=== PATIENT | male | born 1975 ===

== ENCOUNTER 2017-08-06 03:32 | Inpatient (IN) | payer OTHER ==
[2017-08-06] MEDS ORDERED: Sodium Chloride 0.9% 1,000 ML IV ONE (03:47)
--- NOTE | 2017-08-06 03:48 | C.PDOC ---
History Of Present Illness 42 year old male presents to the ED c/o dizziness. Patient reports he was at work when he got dizzy went to sit on a chair and had a witnessed syncopal episode. Patient states he feel weak. Patient denies fever, chills, nausea, vomit, diarrhea, CP, SOB, palpitations, visual changes, tinnitus. Time Seen by Provider: 08/06/17 03:47 Chief Complaint (Nursing): Dizziness/Lightheaded History Per: Patient History/Exam Limitations: no limitations Onset/Duration Of Symptoms: Days Current Symptoms Are (Timing): Still Present Number Of Syncopal Episodes: 1 Activity At Onset Of Symptoms: Sitting Associated Symptoms Preceding Syncopal Episode: No Predromal Symptoms (Sudden Onset) Seizure Or Post-ictal Symptoms: None Possible Causative Factor(s): Other Fall Associated With With Symptoms: No Severity: Moderate Pain Scale Rating Of: 4 Recent travel outside of the [place]: No Additional History Per: Patient Past Medical History Reviewed: Historical Data, Nursing Documentation, Vital Signs Vital Signs: Last Vital Signs Temp 98.8 F 08/06/17 03:39 Pulse 75 08/06/17 05:36 Resp 17 08/06/17 05:36 BP 139/81 08/06/17 05:36 Pulse Ox 97 08/06/17 05:36 - Medical History PMH: No Chronic Diseases Surgical History: No Surg Hx Family History: States: Unknown Family Hx - Social History Hx Alcohol Use: Yes Hx Substance Use: No Review Of Systems Constitutional: Positive for: Weakness. Negative for: Fever, Chills Eyes: Negative for: Vision Change Cardiovascular: Negative for: Chest Pain, Palpitations Respiratory: Negative for: Cough, Shortness of Breath Gastrointestinal: Negative for: Nausea, Vomiting, Diarrhea Skin: Negative for: Rash Neurological: Positive for: Dizziness. Negative for: Headache Psych: Negative for: Anxiety Physical Exam - Physical Exam Appears: Non-toxic Skin: Warm, Dry Head: Normacephalic Eye(s): bilateral: Normal Inspection, PERRL, EOMI Oral Mucosa: Moist Neck: Supple Chest: Symmetrical Cardiovascular: Rhythm Regular Respiratory: No Rales, No Rhonchi, No Wheezing Gastrointestinal/Abdominal: Soft, No Tenderness, No Guarding, No Rebound Back: Normal Inspection Extremity: Normal ROM Extremity: Bilateral: Atraumatic, Normal Color And Temperature Pulses: Left Dorsalis Pedis: Normal, Right Dorsalis Pedis: Normal Neurological/Psych: Oriented x3, Normal Speech, Normal Cognition, Normal Motor, Normal Sensation, Other (no focal deficits) Gait: Unable To Assess ED Course And Treatment - Laboratory Results Result Diagrams: 08/06/17 03:59 08/06/17 03:59 ECG: Interpreted By Me, Viewed By Me ECG Rhythm: Sinus Rhythm (81), Nonspecific Changes O2 Sat by Pulse Oximetry: 99 (ON RA) Pulse Ox Interpretation: Normal - Radiology CXR: Interpreted by Me, Viewed By Me CXR Interpretation: No: Infiltrates, Fracture, Cardiomegaly, Pnemothorax Progress Note: Plan: - CT head. - EKG. - Labs. - IV fluids. - UA Disposition Discussed With Dr.: Flex Solares Comment[facility] took [facility] care at 5:49 AM Doctor Will See Patient In The: ED Counseled Patient/Family Regarding: Studies Performed, Diagnosis - Disposition Disposition: HOSPITALIZED Disposition Time: 05:49 Condition: FAIR Forms: [facility] (Yakut) - POA Present On Arrival: Poor Glycemic Control - Clinical Impression Clinical Impression: Dizziness, Syncope - Scribe Statement The provider has reviewed the documentation as recorded by the Scribe Allen Martinez All medical record entries made by the Scribe were at my direction and personally dictated by me. I have reviewed the chart and agree that the record accurately reflects my personal performance of the history, physical exam, medical decision making, and the department course for this patient. I have also personally directed, reviewed, and agree with the discharge instructions and disposition. Decision To Admit - Pt Status Changed To: Hospital Disposition Of: Inpatient - Admit Certification Admit to Inpatient:: After my assessment, the patient will require hospitalization for at least two midnights. This is because of the severity of symptoms shown, intensity of services needed, and/or the medical risk in this patient being treated as an outpatient. - InPatient: Physician Admission Certification: I certify that this patient requires 2 or more midnights of care for the following reason:: After my assessment, the patient will require hospitalization for at least two midnights. This is because of the severity of symptoms shown, intensity of services needed, and/or the medical risk in this patient being treated as an outpatient. - . Bed Request Type: Telemetry Admitting Physician: Flex Solares Patient Diagnosis: Dizziness, Syncope
[2017-08-06 04:03] LABS: BASO % 0.2 % (0.0-2.0); EOS # 0.1 K/uL (0.0-0.7); HEMOGLOBIN 14.8 g/dL (12.0-18.0); LYMPH # 2.3 K/uL (1.0-4.3); LYMPH % 31.3 % (20.0-40.0); MEAN CELL VOLUME 90.2 fL (80.0-94.0); MEAN CORPUSCULAR HEMOGLOBIN 31.6 pg (27.0-31.0); MEAN PLATELET VOLUME 9.5 fL (7.2-11.7); MONO # 0.4 K/uL (0.0-0.8); MONO % 5.5 % (0.0-10.0); NEUT # 4.5 K/uL (1.8-7.0); RBC 4.67 Mil/uL (4.40-5.90); RED CELL DISTRIBUTION WIDTH 13.8 % (11.5-14.5); WHITE BLOOD COUNT 7.3 K/uL (4.8-10.8)
[2017-08-06] MEDS ORDERED: Sodium Chloride 0.9% 1,000 ML ONE (04:03)
[2017-08-06 04:04] LABS: URINE BILIRUBIN NEGATIVE (NEGATIVE); URINE BLOOD 1+ (NEGATIVE); URINE CLARITY Clear (Clear); URINE COLOR Yellow (YELLOW); URINE GLUCOSE (UA) NORMAL (Normal); URINE LEUKOCYTE ESTERASE NEG Leu/uL (Negative); URINE PROTEIN NEGATIVE (NEGATIVE); URINE UROBILINOGEN NORMAL mg/dL (0.2-1.0)
[2017-08-06 04:08] LABS: INR 1.1; PROTHROMBIN TIME 12.1 SECONDS (9.7-12.2)
[2017-08-06 04:18] LABS: ALB/GLOB RATIO 1.5 (1.0-2.1); ALBUMIN 4.3 g/dL (3.5-5.0); ALT/SGPT 24 U/L (21-72); AST/SGOT 31 U/L (17-59); BLOOD UREA NITROGEN 13 mg/dL (9-20); CALCIUM 8.8 mg/dl (8.6-10.4); GFR AFRICAN-AMERICAN > 60; GFR NON-AFRICAN AMERICAN > 60
--- NOTE | 2017-08-06 05:02 | CT ---
EXAM: CT Head Without Intravenous Contrast CLINICAL HISTORY: 42 years old, male; Pain; Headache; Additional info: R/O bleed TECHNIQUE: Axial computed tomography images of the head/brain without intravenous contrast. All CT scans at this facility use one or more dose reduction techniques, viz.: automated exposure control; ma/kV adjustment per patient size (including targeted exams where dose is matched to indication; i.e. head); or iterative reconstruction technique. COMPARISON: No relevant prior studies available. FINDINGS: Brain: No intracranial hemorrhage. No mass. No definite edema. Ventricles: No hydrocephalus. Bones/joints: No acute fracture. Soft tissues: Unremarkable. Sinuses: Minimal focal mucosal thickening of LEFT maxillary sinus. Mastoid air cells: No mastoid effusion. Orbits: Unremarkable as visualized. IMPRESSION: 1. No definite acute intracranial abnormality. 2. Incidental/non-acute findings are described above.
--- NOTE | 2017-08-06 07:29 | RAD ---
Chest x-ray single frontal view History: Shortness of breath. Comparison: None available. Findings: No focal infiltrate or effusion. Heart size within normal limits. Impression No focal infiltrate or effusion.
[2017-08-06] MEDS ORDERED: Potassium Chloride 20 mEq ER Tab PO ONE ×2 (09:17→11:00)
[2017-08-06 11:47] LABS: HDL CHOLESTEROL 42 mg/dL (30-70)
[2017-08-06 11:59] LABS: LDL CHOLESTEROL 98 mg/dL (0-129)
[2017-08-06 15:01] VITALS: RESP 20
--- NOTE | 2017-08-06 16:04 | CP.PCM.HP ---
History of Present Illness - History of Present Illness History of Present Illness: CC- syncope HPI- Patient is a 42M with no significant PMH presenting for evaluation of syncopal episode. Patient stated he was working at his job at a [employer] last night when he became dizzy and had a witnessed syncopal episode. He stated that before the fall his body felt heavy and he had palpitations with SOB that came and went. He felt warm and sweaty at the time. He does not remember the fall. He was out for about 1min. He continued to be dizzy afterward. He felt nauseous. He denied urination, BM, and vomiting. This is the first time this has happened according to the patient. Patient states he felt tremors and palpitations at the time and states he felt nervous, but does not feel these symptoms now. PMH- denied PSH- denied Medications- denied Allergies- NKDA Family- denied significant medical history Social- Reports that he will smoke cigarettes and drink beer at, works at [employer], drives and lifts boxes. parties 1-2 times/month. denies illicit drug use. Present on Admission - Present on Admission Any Indicators Present on Admission: No History of DVT/PE: No History of Uncontrolled Diabetes: No Urinary Catheter: No Decubitus Ulcer Present: No Review of Systems - Constitutional Constitutional: As Per HPI - EENT Eyes: absent: Blind Spots, Blurred Vision Past Patient History - Past Medical History & Family History Past Medical History?: No - Past Social History Smoking Status: Current Some Days Smoker - MUSCULOSKELETAL/RHEUMATOLOGICAL Hx Falls: No - PSYCHIATRIC Hx Substance Use: No - SURGICAL HISTORY Hx Surgeries: No Meds Allergies/Adverse Reactions: Allergies Allergy/AdvReac Type Severity Reaction Status Date / Time No Known Allergies Allergy Verified 08/06/17 06:27 Physical Exam - ENT Exam ENT Exam: Mucous Membranes Moist, Normal Exam - Neck Exam Neck exam: Positive for: Full Rom, Normal Inspection - Respiratory Exam Respiratory Exam: Clear to Auscultation Bilateral, NORMAL BREATHING PATTERN. absent: Accessory Muscle Use, Decreased Breath Sounds - Cardiovascular Exam Cardiovascular Exam: REGULAR RHYTHM, +S1, +S2. absent: Bradycardia, Tachycardia - GI/Abdominal Exam GI & Abdominal Exam: Normal Bowel Sounds, Soft. absent: Hyperactive Bowel Sounds, Tenderness - Extremities Exam Extremities exam: Positive for: full ROM, normal inspection. Negative for: tenderness Additional comments: muscle strength 5/5 sensations intact all four extremities - Back Exam Back exam: FULL ROM. absent: paraspinal tenderness, tenderness - Neurological Exam Neurological exam: Alert, CN II-XII Intact, Normal Gait, Oriented x3 - Skin Skin Exam: Dry, Intact, Normal Color Results - Vital Signs Recent Vital Signs: Last Vital Signs Temp 98.1 F 08/06/17 08:55 Pulse 67 08/06/17 10:48 Resp 20 08/06/17 10:48 BP 127/76 08/06/17 10:48 Pulse Ox 98 08/06/17 10:48 - Labs Result Diagrams: 08/06/17 03:59 08/06/17 03:59 Labs: Laboratory Results - last 24 hr 08/06/17 08/06/17 08/06/17 03:36 03:59 03:59 WBC 7.3 RBC 4.67 Hgb 14.8 Hct 42.2 MCV 90.2 MCH 31.6 H MCHC 35.0 RDW 13.8 Plt Count 192 MPV 9.5 Neut % (Auto) 61.0 Lymph % (Auto) 31.3 [place] % (Auto) 5.5 Eos % (Auto) 2.0 Baso % (Auto) 0.2 Neut # (Auto) 4.5 Lymph # (Auto) 2.3 [place] # (Auto) 0.4 Eos # (Auto) 0.1 Baso # (Auto) 0.0 PT 12.1 INR 1.1 APTT 32 Sodium Potassium Chloride Carbon Dioxide Anion Gap BUN Creatinine Est GFR ( Amer) Est GFR (Non-Af Amer) POC Glucose (mg/dL) 148 H Random Glucose Hemoglobin A1c Calcium Total Bilirubin AST ALT Alkaline Phosphatase Troponin I Total Protein Albumin Globulin Albumin/Globulin Ratio Triglycerides Cholesterol LDL Cholesterol Direct HDL Cholesterol Vitamin B12 25-OH Vitamin D Total Free T4 TSH 3rd Generation Urine Color Urine Clarity Urine pH Ur Specific [place] Urine Protein Urine Glucose (UA) Urine Ketones Urine Blood Urine Nitrate Urine Bilirubin Urine Urobilinogen Ur Leukocyte Esterase Urine WBC (Auto) Urine RBC (Auto) Alcohol, Quantitative 08/06/17 08/06/17 08/06/17 03:59 03:59 11:20 WBC RBC Hgb Hct MCV MCH MCHC RDW Plt Count MPV Neut % (Auto) Lymph % (Auto) [place] % (Auto) Eos % (Auto) Baso % (Auto) Neut # (Auto) Lymph # (Auto) [place] # (Auto) Eos # (Auto) Baso # (Auto) PT INR APTT Sodium 141 Potassium 3.5 L Chloride 106 Carbon Dioxide 25 Anion Gap 14 BUN 13 Creatinine 1.3 Est GFR ( Amer) > 60 Est GFR (Non-Af Amer) > 60 POC Glucose (mg/dL) Random Glucose 129 H Hemoglobin A1c Calcium 8.8 Total Bilirubin 0.8 AST 31 ALT 24 Alkaline Phosphatase 102 Troponin I < 0.0120 Total Protein 7.2 Albumin 4.3 Globulin 2.9 Albumin/Globulin Ratio 1.5 Triglycerides 56 Cholesterol 161 LDL Cholesterol Direct 98 HDL Cholesterol 42 Vitamin B12 409 25-OH Vitamin D Total Free T4 TSH 3rd Generation 0.94 Urine Color Yellow Urine Clarity Clear Urine pH 5.0 Ur Specific [place] 1.015 Urine Protein Negative Urine Glucose (UA) Normal Urine Ketones Trace Urine Blood 1+ H Urine Nitrate Negative Urine Bilirubin Negative Urine Urobilinogen Normal Ur Leukocyte Esterase Neg Urine WBC (Auto) < 1 Urine RBC (Auto) < 1 Alcohol, Quantitative < 10 < 10 08/06/17 08/06/17 08/06/17 11:20 11:20 11:20 WBC RBC Hgb Hct MCV MCH MCHC RDW Plt Count MPV Neut % (Auto) Lymph % (Auto) [place] % (Auto) Eos % (Auto) Baso % (Auto) Neut # (Auto) Lymph # (Auto) [place] # (Auto) Eos # (Auto) Baso # (Auto) PT INR APTT Sodium Potassium Chloride Carbon Dioxide Anion Gap BUN Creatinine Est GFR ( Amer) Est GFR (Non-Af Amer) POC Glucose (mg/dL) Random Glucose Hemoglobin A1c 6.3 Calcium Total Bilirubin AST ALT Alkaline Phosphatase Troponin I Total Protein Albumin Globulin Albumin/Globulin Ratio Triglycerides Cholesterol LDL Cholesterol Direct HDL Cholesterol Vitamin B12 25-OH Vitamin D Total 21.3 L Free T4 1.15 TSH 3rd Generation Urine Color Urine Clarity Urine pH Ur Specific [place] Urine Protein Urine Glucose (UA) Urine Ketones Urine Blood Urine Nitrate Urine Bilirubin Urine Urobilinogen Ur Leukocyte Esterase Urine WBC (Auto) Urine RBC (Auto) Alcohol, Quantitative Assessment & Plan - Assessment and Plan (Free Text) Assessment: 42M with no past medical history presents with syncopal episode. Syncope - Orthostatics - TSH - Lipid Panel, within normal range - Mg level, B12 level, vitamin D level - Alcohol <10 - UDS - EKG - Echocardiagram with outpatient follow up - Liquid diet - Date & Time Date: 08/06/17 Time: 15:55
--- NOTE | 2017-08-06 19:30 | CARD ---
APPROVED REPORT EKG Measurement Heart [id number] <Conclusion> Normal sinus rhythm Normal ECG
--- NOTE | 2017-08-07 02:35 | CARD ---
APPROVED REPORT EXAM: Two-dimensional and M-mode echocardiogram with Doppler and color Doppler. Other Information Quality : GoodRhythm : INDICATION Dizziness and Vertigo Syncope 2D DIMENSIONS IVSd1.1 (0.7-1.1cm)Aortic Root (2D)3.1 (2.0-3.7cm) LVDd4.7 (3.9-5.9cm)PWd0.9 (0.7-1.1cm) LVDs2.9 (2.5-4.0cm)FS (%) 38.7 % LVEF (%)69.0 (>50%) M-Mode DIMENSIONS RVDd2.11 (2.1-3.2cm)Left Atrium (MM)3.08 (2.5-4.0cm) IVSd0.92 (0.7-1.1cm)Aortic Root2.99 (2.2-3.7cm) LVDd5.01 (4.0-5.6cm)Aortic Cusp Exc.2.13 (1.5-2.0cm) PWd0.74 (0.7-1.1cm)FS (%) 51 % LVDs2.48 (2.0-3.8cm)LVEF (%)70 (>50%) Mitral Valve MV E Pgwcdkwk66.1cm/sMV A Iktdguyj95.1cm/sE/A ratio1.0 TDI E/Lateral E'0.0E/Medial E'0.0 LEFT VENTRICLE The left ventricle is normal size. There is normal left ventricular wall thickness. The left ventricular function is normal. The left ventricular ejection fraction is within the normal range. There is normal LV segmental wall motion. The left ventricular diastolic function is normal. RIGHT VENTRICLE The right ventricle is normal size. ATRIA The left atrium size is normal. The right atrium size is normal. AORTIC VALVE The aortic valve is normal in structure. MITRAL VALVE The mitral valve is normal in structure. TRICUSPID VALVE The tricuspid valve is normal in structure. <Conclusion> Normal LV systolic function. Normal chamber size. No significant valvular abnormality seen.
[2017-08-07 08:41] VITALS: BP 122/73; PULSE 80; TEMP 97.9; O2SAT 99
--- NOTE | 2017-08-07 13:37 | CP.PCM.DIS ---
Provider - Provider Date of Admission: 08/06/17 05:48 Attending physician: Flex Solares MD Time Spent in preparation of Discharge (in minutes): 35 Hospital Course - Lab Results Lab Results: Most Recent Lab Values WBC 7.3 K/uL (4.8-10.8) 08/06/17 03:59 RBC 4.67 Mil/uL (4.40-5.90) 08/06/17 03:59 Hgb 14.8 g/dL (12.0-18.0) 08/06/17 03:59 Hct 42.2 % (35.0-51.0) 08/06/17 03:59 MCV 90.2 fL (80.0-94.0) 08/06/17 03:59 MCH 31.6 pg (27.0-31.0) H 08/06/17 03:59 MCHC 35.0 g/dL (33.0-37.0) 08/06/17 03:59 RDW 13.8 % (11.5-14.5) 08/06/17 03:59 Plt Count 192 K/uL (130-400) 08/06/17 03:59 MPV 9.5 fL (7.2-11.7) 08/06/17 03:59 Neut % (Auto) 61.0 % (50.0-75.0) 08/06/17 03:59 Lymph % (Auto) 31.3 % (20.0-40.0) 08/06/17 03:59 [place] % (Auto) 5.5 % (0.0-10.0) 08/06/17 03:59 Eos % (Auto) 2.0 % (0.0-4.0) 08/06/17 03:59 Baso % (Auto) 0.2 % (0.0-2.0) 08/06/17 03:59 Neut # (Auto) 4.5 K/uL (1.8-7.0) 08/06/17 03:59 Lymph # (Auto) 2.3 K/uL (1.0-4.3) 08/06/17 03:59 [place] # (Auto) 0.4 K/uL (0.0-0.8) 08/06/17 03:59 Eos # (Auto) 0.1 K/uL (0.0-0.7) 08/06/17 03:59 Baso # (Auto) 0.0 K/uL (0.0-0.2) 08/06/17 03:59 PT 12.1 SECONDS (9.7-12.2) 08/06/17 03:59 INR 1.1 08/06/17 03:59 APTT 32 SECONDS (21-34) 08/06/17 03:59 Sodium 141 mmol/L (132-148) 08/06/17 03:59 Potassium 3.5 mmol/L (3.6-5.2) L 08/06/17 03:59 Chloride 106 mmol/L (98-107) 08/06/17 03:59 Carbon Dioxide 25 mmol/L (22-30) 08/06/17 03:59 Anion Gap 14 (10-20) 08/06/17 03:59 BUN 13 mg/dL (9-20) 08/06/17 03:59 Creatinine 1.3 mg/dL (0.8-1.5) 08/06/17 03:59 Est GFR ( Amer) > 60 08/06/17 03:59 Est GFR (Non-Af Amer) > 60 08/06/17 03:59 POC Glucose (mg/dL) 148 mg/dL (65-110) H 08/06/17 03:36 Random Glucose 129 mg/dL (75-110) H 08/06/17 03:59 Hemoglobin A1c 6.3 % (4.2-6.5) 08/06/17 11:20 Calcium 8.8 mg/dl (8.6-10.4) 08/06/17 03:59 Total Bilirubin 0.8 mg/dL (0.2-1.3) 08/06/17 03:59 AST 31 U/L (17-59) 08/06/17 03:59 ALT 24 U/L (21-72) 08/06/17 03:59 Alkaline Phosphatase 102 U/L (38-126) 08/06/17 03:59 Troponin I < 0.0120 ng/mL (0.00-0.120) 08/06/17 03:59 Total Protein 7.2 g/dL (6.3-8.3) 08/06/17 03:59 Albumin 4.3 g/dL (3.5-5.0) 08/06/17 03:59 Globulin 2.9 gm/dL (2.2-3.9) 08/06/17 03:59 Albumin/Globulin Ratio 1.5 (1.0-2.1) 08/06/17 03:59 Triglycerides 56 mg/dL (0-149) 08/06/17 11:20 Cholesterol 161 mg/dL (0-199) 08/06/17 11:20 LDL Cholesterol Direct 98 mg/dL (0-129) 08/06/17 11:20 HDL Cholesterol 42 mg/dL (30-70) 08/06/17 11:20 Vitamin B12 409 pg/mL (239-931) 08/06/17 11:20 25-OH Vitamin D Total 21.3 NG/ML (30.0-100.0) L 08/06/17 11:20 Free T4 1.15 ng/dL (0.78-2.19) 08/06/17 11:20 TSH 3rd Generation 0.94 mIU/L (0.46-4.68) 08/06/17 11:20 Urine Color Yellow (YELLOW) 08/06/17 03:59 Urine Clarity Clear (Clear) 08/06/17 03:59 Urine pH 5.0 (5.0-8.0) 08/06/17 03:59 Ur Specific [place] 1.015 (1.003-1.030) 08/06/17 03:59 Urine Protein Negative mg/dL (NEGATIVE) 08/06/17 03:59 Urine Glucose (UA) Normal mg/dL (Normal) 08/06/17 03:59 Urine Ketones Trace mg/dL (NEGATIVE) 08/06/17 03:59 Urine Blood 1+ (NEGATIVE) H 08/06/17 03:59 Urine Nitrate Negative (NEGATIVE) 08/06/17 03:59 Urine Bilirubin Negative (NEGATIVE) 08/06/17 03:59 Urine Urobilinogen Normal mg/dL (0.2-1.0) 08/06/17 03:59 Ur Leukocyte Esterase Neg [place]/uL (Negative) 08/06/17 03:59 Urine WBC (Auto) < 1 /hpf (0-5) 08/06/17 03:59 Urine RBC (Auto) < 1 /hpf (0-3) 08/06/17 03:59 Alcohol, Quantitative < 10 mg/dl (0-10) 08/06/17 11:20 - Hospital Course Hospital Course: HPI: Patient is a 42M with no significant PMH presenting for evaluation of syncopal episode. 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 He stated that before the fall his body felt heavy and he had palpitations with SOB that came and went. He felt warm and sweaty at the time. He does not remember the fall. He was out for about 1min. He continued to be dizzy afterward. He felt nauseous. He denied urination, BM, and vomiting. This is the first time this has happened according to the patient. Patient states he felt tremors and palpitations at the time and states he felt nervous, but does not feel these symptoms now. Hospital Course: Patient had blood tests drawn for Vitamin D were low. Patient CT head negative for hemorrhage, echo was done which showed normal ejection fraction, normal systolic function. Patient seen and examined throughout. Patient was found to be hypertensive during his stay. Patient had no headache, dizziness during stay. Patient advised to follow up with game moderator and establish with primary care doctor for further follow up. Echo: normal EF, ventricular function normal CT Head: no acute hemorrhage or abnormalities noted. CXR: no active disease Patient discharged on: Ergocalciferol 50,000 u QWeek Above is brief summary of hospital course. please see EMR for further information Dr. Mahamed Gorman DO PGY1 - Date & Time of H&P Date of H&P: 08/07/17 Time of H&P: 13:37 Discharge Plan - Discharge Medications Prescriptions: Ergocalciferol (Vitamin D2) [Vitamin D2] 50,000 unit PO QWK #30 capsule - Follow Up Plan Condition: FAIR Disposition: HOME/ ROUTINE Instructions: Dizziness, Nonvertigo, (DC), Syncope (DC) Additional Instructions: Patient to follow up with primary care doctor at [facility]. Take Ergocalciferol 50,[address] head normal echocardiogram orthostatic vitals are normal. No orthostatic hypotension Referrals: Rose Gorman DO [Resident] - Jeremiah Irby MD [Staff Provider] -
[2017-08-07 15:03] LABS: BARBITURATES, UR NEGATIVE (NEGATIVE); BENZODIAZEPINES, UR NEGATIVE (NEGATIVE); OPIATES, UR NEGATIVE (NEGATIVE); PHENCYCLIDINE, UR NEGATIVE (NEGATIVE)
== END 2017-08-07 14:33 | disposition home or self-care (01) | DRG 149 ==
LOC: C.ER 03:32 → C.9E 05:48 → C.5S 08:59
PROVIDERS: ADMIT Family Medicine; ATTEND Family Medicine
DX: R42 Dizziness and giddiness (principal); F17.210 Nicotine dependence, cigarettes, uncomplicated